=== PATIENT | male | born 1950 | race Caucasian/White ===

== ENCOUNTER 2019-02-07 06:45 | Day surgery (SDC) | payer MEDICARE, OTHER ==
[~2019-02-07 06:45] MED LIST: Dexamethasone IV* 4 MG/ML 1 ML (4 MG) IV SLOW PU ONE; Famotidine IV* 10 MG/ML 2 ML (20 mg) IV ONE; Lactated Ringers 1000 ML Bag* 1,000 ML IV SCH
[2019-02-07] MEDS ORDERED: Clindamycin 900 MG IVPREMIX(* 0 MG/0 ML SDV IV ONE (06:51)
[2019-02-07] MEDS ORDERED: Dexamethasone IV* 4 MG/ML 1 ML (4 MG) ONE ×2 (06:51→07:11)
[2019-02-07] MEDS ORDERED: Famotidine IV* 10 MG/ML 2 ML (20 mg) ONE ×2 (06:52→07:11)
[2019-02-07] MEDS ORDERED: Buffered Lidocaine 1% SYRIN* 1 ML/SYRINGE INTRADERM ONE ×2 (06:52→07:11)
[2019-02-07] MEDS ORDERED: Clindamycin 900 MG IVPREMIX(* 900 MG/50 ML SDV IV ONE (07:11)
[2019-02-07] MEDS: Buffered Lidocaine 1% SYRIN* 1 ML/SYRINGE INTRADERM ONE ×2 (07:37→07:41)
[2019-02-07] MEDS ORDERED: fentaNYL* 50 MCG/ML 2 ML VIAL (100 MCG VIAL) ONE (08:23)
[2019-02-07] MEDS ORDERED: Midazolam* 1 MG/ML 2 ML VIAL (2 MG) ONE (08:23)
[2019-02-07] MEDS ORDERED: Bupivacaine 0.25% SDV PF* 10 ML VIAL INJ ONE (08:53)
[2019-02-07] MEDS ORDERED: Propofol* 10 MG/ML 20 ML BTL ONE (08:59)
[2019-02-07] MEDS ORDERED: Lidocaine 2% PF * 5 ML VIAL ONE (08:59)
[2019-02-07] MEDS ORDERED: oxyCODONE TAB* 5 MG TAB PO PRN (09:04)
[2019-02-07] MEDS ORDERED: Naloxone* 0.4 MG/ML 1 ML VIAL IV PRN (09:04)
[2019-02-07] MEDS ORDERED: fentaNYL* 50 MCG/ML 2 ML VIAL (100 MCG VIAL) IV PRN (09:04)
[2019-02-07] MEDS ORDERED: DiMENhydriNATE IV* 50 MG/ML VIAL IV PUSH PRN (09:04)
[2019-02-07] MEDS ORDERED: Ketorolac INJ* 30 MG/ML 1 ML VIAL IV PRN (09:04)
[2019-02-07] MEDS ORDERED: Acetaminophen TAB* 325 MG PO PRN (09:04)
[2019-02-07] MEDS ORDERED: HYDROcodone/ACETAMIN 5-325 MG* 1 TAB PO PRN (09:04)
[2019-02-07] MEDS ORDERED: Ondansetron INJ* 2 MG/ML VIAL ONE (10:02)
[2019-02-07] MEDS ORDERED: Ketorolac INJ* 30 MG/ML 1 ML VIAL ONE (10:56)
[2019-02-07] MEDS ORDERED: HYDROcodone/ACETAMIN 5-325 MG* 1 TAB ONE (10:56)
[2019-02-07 12:32] VITALS: BP 131/72
--- NOTE | 2019-02-07 17:30 | OP ---
DATE OF OPERATION: 02/07/19 - [facility] DATE OF : 46 SURGEON: Dawson Sue MD JINRIKISHA DRIVER: GEOVANY Joyner ANESTHESIOLOGIST: Dr. Viera. ANESTHESIA: General. PRE-OP DIAGNOSES: 1. Right carpal tunnel syndrome. 2. Right middle, ring, and small trigger fingers. POST-OP DIAGNOSES: 1. Right carpal tunnel syndrome. 2. Right middle, ring, and small trigger fingers. OPERATIVE PROCEDURE: 1. Right endoscopic carpal tunnel release. 2. Right middle trigger finger release. 3. Right ring trigger finger release. 4. Right small trigger finger release. INDICATIONS: Mateo has the aforementioned symptoms. The numbness is mostly between the ring and the middle fingers. Additionally, the trigger fingers are chronic. He has been to physical therapy. He has had difficulty fully closing the hand for quite some time. He understands he is going to need to do therapy postoperatively. Risks and benefits have been discussed. ESTIMATED BLOOD LOSS: 2 mL. COMPLICATIONS: None. FINDINGS: See above and below. DESCRIPTION OF PROCEDURE: Mateo was seen in the preoperative holding area. The correct side, site, and procedure were identified. We came back to the operating room. The arm was prepped and draped in the usual fashion. A time- out was performed. The arm was exsanguinated with the Esmarch and the tourniquet was inflated to 250 mmHg. I began by making a 1-cm transverse incision just ulnar to the palmaris longus tendon. Dissection was carried down bluntly with the tenotomy scissors and then I made a split in the distal antebrachial fascia. I retracted this out of way with a narrow two-prong skin hook. I then used a synovial stripper followed by the dilators and then the MicroAire endoscopic carpal tunnel system was introduced. I had excellent visualization, I went ahead and elevated the knife blade and pulled back to cut the transverse carpal ligament. Once I completed the distal cut, I went ahead and released the remainder of the cut proximally. I placed a Brandon retractor and confirmed the full release distally. I then released the remainder of the distal antebrachial fascia and transverse carpal ligament proximally with the tenotomy scissors. I then irrigated out the wound and skin was closed with a 4-0 nylon suture. I then made 1-cm longitudinal incisions over the A1 javier of the middle, ring, and then small fingers. Dissection was carried down and bluntly I raised full- thickness flaps off each tendon sheath. I first began at the middle finger. I placed a couple of Ragnell retractors and then released the A1 javier with a 15 blade along the radial third longitudinally. The release was completed distally and proximally with the tenotomy scissors. There was quite a bit of proximal tenosynovitis; this was all excised. I then came to the ring finger and placed the Ragnell retractors and then released the A1 javier in similar fashion. I then came to the small finger and placed the Ragnell retractors and released the A1 javier in similar fashion. There was not as much tenosynovitis around the ring and small fingers. After I released all 3 trigger fingers, I checked for any triggering; there was none. I irrigated out all the wounds. Skin was closed with 4-0 nylon suture. Soft dressings were applied. He was taken to the recovery room in stable condition. [id number]/[facility] #: [id number]
== END 2019-02-07 11:35 | disposition home or self-care (01) ==
LOC: OR 06:45
PROVIDERS: ATTEND Orthopaedic Surgery Hand Surgery
DX: G56.01 Carpal tunnel syndrome, right upper limb (principal); G56.21 Lesion of ulnar nerve, right upper limb; M65.351 Trigger finger, right little finger; M65.331 Trigger finger, right middle finger; M65.341 Trigger finger, right ring finger; M79.7 Fibromyalgia; Z88.0 Allergy status to penicillin
CPT/HCPCS: J1100; J1885; J2250; J2405; J2704; J3010; J3490

== ENCOUNTER 2019-08-04 14:49 | Emergency (ER) | payer MEDICARE, OTHER ==
[2019-08-04] MEDS ORDERED: Bupivacaine 0.25% SDV* 30 ML INJ ONE (16:01)
[2019-08-04] MEDS ORDERED: Bupivacaine 0.25% SDV PF* 10 ML VIAL INJ ONE (16:01)
--- NOTE | 2019-08-04 16:57 | ED ---
Laceration/Wound HPI - HPI Summary HPI Summary: Pt presents to the ED with a right hand injury. Patient states he fell, stretching out his R hand and injuring it on something sharp on the ground. Tetanus is not UTD. Denies any numbness or tingling into the hand. Denies any pain to the upper extremity otherwise. States he is able to move all fingers and thumb well, however the thumb is with pain. Bleeding is controlled on arrival. - History of Current Complaint Stated Complaint: INJURY TO RIGHT HAND PER PT Time Seen by Provider: 08/04/19 15:02 Hx Obtained From: Patient Mechanism of Injury: Sharp/Blunt Trauma Onset/Duration: Sudden Onset, Lasting Hours Alleviating: Compression Timing: Constant Onset Severity: Severe Current Severity: Severe Pain Intensity: 6 Pain Scale Used: 0-10 Numeric Associated Signs & Symptoms: Negative Related Hx: Dominant Hand (Right) - Allergy/Home Medications Allergies/Adverse Reactions: Allergies Allergy/AdvReac Type Severity Reaction Status Date / Time Penicillins Allergy Rash Verified 08/04/19 15:01 PMH/Surg Hx/FS Hx/Imm Hx Previously Healthy: Yes Endocrine/Hematology History: Denies: Hx Diabetes, Hx Thyroid Disease Cardiovascular History: Denies: Hx Pacemaker/ICD, Other Cardiovascular Problems/Disorders Respiratory History: Denies: Other Respiratory Problems/Disorders GI History: Denies: Other GI Disorders History: Denies: Other Problems/Disorders Musculoskeletal History: Reports: Hx Arthritis - LEFT FOOT, RIGHT KNEE, LEFT KNEE, Other Musculoskeletal History - shoulder and knee right side surgery after a trauma Sensory History: Denies: Hx Contacts or Glasses, Hx Hearing Aid Opthamlomology History: Denies: Hx Contacts or Glasses Neurological History: Denies: Other Neuro Impairments/Disorders - Surgical History Surgery Procedure, Year, and Place: 2013-RIGHT KNEE SURGERY-[facility]. 2016- RIGHT ROTATOR CUFF REPAIR. VASECTOMY-45 YEARS AGO Hx Anesthesia Reactions: No - Immunization History Hx Pertussis Vaccination: No Immunizations Up to Date: Yes Infectious Disease History: No Infectious Disease History: Denies: Traveled Outside the [place] in Last 30 Days - Social History Occupation: Unemployed Lives: With Family Alcohol Use: Rare Hx Substance Use: No Substance Use Type: Reports: None Hx Tobacco Use: No Smoking Status (MU): Never Smoked Tobacco Have You Smoked in the Last Year: No Review of Systems Negative: Fever, Chills, Fatigue, Skin Diaphoresis Negative: Palpitations, Chest Pain Genitourinary: Negative Positive: no symptoms reported, see HPI Negative: Arthralgia, Myalgia Positive: Other - large laceration to the webspace of the R hand Neurological: Negative All Other Systems Reviewed And Are Negative: Yes Physical Exam Triage Information Reviewed: Yes Vital Signs On Initial Exam: Initial Vitals Temp Pulse Resp BP Pulse Ox 98 F 77 16 184/100 96 08/04/19 14:56 08/04/19 14:56 08/04/19 14:56 08/04/19 14:56 08/04/19 14:56 Vital Signs Reviewed: Yes Appearance: Positive: Well-Appearing, Well-Nourished Skin: Positive: Skin Color Reflects Adequate Perfusion, Other - skin tears around R hand - large maceration with exposed thenar muscles Eyes: Positive: EOMI, TERRI, Conjunctiva Clear Neck: Positive: Supple, No Lymphadenopathy Respiratory/Lung Sounds: Positive: Clear to Auscultation, Breath Sounds Present Cardiovascular: Positive: Normal, Pulses are Symmetrical in both Upper and Lower Extremities Musculoskeletal: Positive: Strength/ROM Intact Neurological: Positive: Speech Normal Psychiatric: Positive: Affect/Mood Appropriate AVPU Assessment: Alert Procedures - Sedation Patient Received Moderate/Deep Sedation with Procedure: No - Laceration/Wound Repair R hand Location: upper extremity Description: Irregular Anesthesia: 1.0%, Lido, Marcaine Length, Depth and Shape: 5cm diameter, deep Betadine Prep?: No Irrigated w/ Saline (ccs): 120 - copious jet irrigation and soak with FB removal Laceration/Wound Explored: contaminated, foreign body removed Closure: Single Layer - 12 sutures placed Debridement: moderate Suture Type: Prolene Number of Sutures: 12 Layer Closure?: No Sterile Dressing Applied?: Yes Diagnostics - Vital Signs Vital Signs Temp Pulse Resp BP Pulse Ox 08/04/19 14:56 98 F 77 16 184/100 96 - Laboratory Lab Statement: Any lab studies that have been ordered have been reviewed, and results considered in the medical decision making process. 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 There is a deep laceration to the thenar/web spacing of the R hand. Thumb opposition intact, although pt unwilling to fully oppose thumb to all fingers d/t pain. Thenar muscles exposed. Skin flap over area macerated and pulled back, exlosing underlying tissue and muscle. Nn obvious tendon laceration, although difficult to assess. Pulses +2 intact. No decreased sensation throughout the fingers, thumb, base of thumb or wrist. No temperature changes. Flexion and extension of all fingers intact, thumb flexion at IP joint limited, again difficult to assess d/t patient pain. Marcaine and lidocaine placed around wound. Discussed with Dr. Sapp (photos sent by backline). Encouraged bedside washout jet irrigation with appropriation of the skin with loose closure and medicated bandage. Will f/u with ortho. Soak followed by copious jet irrigation x 10 minutes bedside with several small debris removed from wound. 12 loose closure using 4-0 prolene placed. Bleeding controlled. NV intact. Xeroform occlusive medicated gauze placed. Wrapped with gauze and valdez bandage applied. Given keflex and tetanus updated in ED. Given follow up with Dr. Sue (pt preference) and Tramadol RX. Keflex RX. He will change bandage every 24-48 hours (supplied given) and allow warm soapy water to the area without scrubbing. All return precautions were discussed in depth and he offers no concerns at this. He will call ortho [facility] for f/u appt. - Differential Dx Differental Diagnoses: Foreign Body, Laceration, Tendon Laceration - Clinical Impression Provider Diagnoses: Hand laceration - Physician Notifications Discussed Care Of Patient With: Leonardo Sapp Instructed by Provider To: Have Pt Call For Appt. - pt will call [facility] AM Discharge ED - Sign-Out/Discharge Documenting (check all that apply): Patient Departure - Discharge Plan Condition: Stable Disposition: HOME Prescriptions: Cephalexin CAP* [Keflex CAP*] 500 mg PO BID #14 cap MDD 2 Cephalexin CAP* [Keflex CAP*] 500 mg PO BID #14 cap MDD 2 traMADol TAB* [Ultram*] 50 mg PO Q8H PRN #12 tab MDD 3 PRN Reason: Pain Patient Education Materials: Care For Your Stitches (ED), Laceration (ED) Referrals: Daljit Villasenor MD [Primary Care Provider] - Dawson Sue MD [Medical Doctor] - 3 Days (Large hand laceration) Additional Instructions: Please follow up with Dr. Sue Keep the bandage applied x 24 hours You may gently remove the bandage, wash the area gently with soap and water and rebandage Call tomorrow morning to make an appt Keflex 500mg twice daily x 7 days - Billing Disposition and Condition Condition: STABLE Disposition: Home
[2019-08-04] MEDS ORDERED: Lidocaine 1% INJ* 10 MG/ML 30 ML SDV ONE (17:09)
[2019-08-04] MEDS ORDERED: Cephalexin CAP* 500 MG PO ONE (17:45)
[2019-08-04] MEDS ORDERED: Tetan/Diph/Pertus SYR(Tdap)* 0.5 ML SYR(BOOSTRIX) use SYR contains LATEX IM ONE (18:06)
[2019-08-04 18:35] VITALS: BP 148/91
== END 2019-08-04 18:32 | disposition home or self-care (01) ==
LOC: ED 14:49
DX: S61.411A Laceration without foreign body of right hand, initial encounter (principal); Z23 Encounter for immunization; W19.XXXA Unspecified fall, initial encounter; Y92.9 Unspecified place or not applicable; Z88.0 Allergy status to penicillin; Z98.52 Vasectomy status
CPT/HCPCS: 12002; 90471; 90715; 99282; A9270-GY; J3490

== ENCOUNTER 2020-11-27 03:50 | Inpatient (IN) ==
[2020-11-27] MEDS ORDERED: NS 0.9% 1000 ml BAG 1,000 ML IV ONE ×2 (03:56→04:34)
[2020-11-27] MEDS ORDERED: Ondansetron 4 mg VIAL 2 MG/ML 2 ml VIAL IV ONE ×3 (04:34→15:02)
[2020-11-27 04:39] LABS: ABS Basophils 0.1 10^3/ul (0-0.2); ABS Eosinophils 0.2 10^3/ul (0-0.6); ABS Lymphocytes 1.4 10^3/ul (1.0-4.8); ABS Monocytes 0.6 10^3/ul (0-0.8); ABS Neutrophils 8.4 10^3/ul (1.5-7.7); Eosinophil % 2.3 %; Hematocrit 44 % (42-52); Hemoglobin 14.8 g/dL (14.0-18.0); Lymphocyte % 13.3 %; Mean Corpuscular HGB Conc 34 g/dL (31-36); Mean Corpuscular Hemoglobin 30 pg (27-31); Mean Corpuscular Volume 89 fL (80-94); Mean Platelet Volume 9.6 fL (7.4-10.4); Platelet Count 186 10^3/uL (150-450); Red Blood Count 4.88 10^6 /uL (4.18-5.48); Red Cell Distribution Width 14 % (10-15); White Blood Count 10.8 10^3/uL (3.5-10.8)
[2020-11-27] MEDS ORDERED: hydrALAZINE 20 mg/ml 1 ML Vial IV IV SLOW PU ONE (04:48)
[2020-11-27 04:51] LABS: Activated Partial Thrombo Time 27.9 seconds (26.0-38.0); Albumin 4.1 g/dL (3.2-5.2); Albumin/Globulin Ratio 1.6 (1-3); BUN/Creatinine Ratio 20.2 (8-20); Calcium 8.9 mg/dL (8.6-10.3); EGFR Non-African American 90.1 (>60); Globulin 2.5 g/dL (2-4); HDL Cholesterol 52.1 mg/dL; INR 0.93 (0.82-1.09); Potassium 3.3 mmol/L (3.5-5.0); Total Bilirubin 0.4 mg/dL (0.2-1.0); Total Protein 6.6 g/dL (6.4-8.9)
[2020-11-27] MEDS ORDERED: Iohexol 350 (CONTRAST) 500 ML MDV IV ONE (05:13)
[2020-11-27 05:38] LABS: Urine Appearance Clear; Urine Bilirubin Negative (Negative); Urine Blood Negative (Negative); Urine Color Straw; Urine Glucose 1+(50 mg/dL) (Negative); Urine Ketones Negative (Negative); Urine Nitrite Negative (Negative); Urine Protein Negative (Negative); Urine Specific Gravity 1.014 (1.010-1.030); Urine Urobilinogen Negative (Negative)
[2020-11-27] MEDS ORDERED: NS 0.9% 1000 ml BAG 1,000 ML IV SCH (10:00)
[2020-11-27] MEDS ORDERED: niCARdipine 0.1MG/ML IVPREMIX 20 MG/200 ML BAG IV SCH (10:00)
[2020-11-27 10:29] LABS: Phosphorus 2.5 mg/dL (2.5-5.0)
[2020-11-27] MEDS: KCL 10 MEQ/50 ML IVPREMIX 10 MEQ/50 ML BAG IV SCH ×2 (11:19→12:38)
[2020-11-27] MEDS ORDERED: hydrALAZINE 20 mg/ml 1 ML Vial IV IV SLOW PU PRN (13:53)
[2020-11-27] MEDS ORDERED: Ondansetron 4 mg VIAL 2 MG/ML 2 ml VIAL ONE (15:03)
[2020-11-27 15:12] VITALS: BP 136/62
== END 2020-11-27 13:30 | disposition short-term general hospital (02) | DRG 65 ==
LOC: ED 03:50 → ICU 06:44
PROVIDERS: ADMIT Internal Medicine; ATTEND Internal Medicine

== ENCOUNTER 2024-10-05 21:43 | Observation (INO) ==
[2024-10-05 22:43] LABS: ABS Basophils 0.1 10^3/uL (0.0-0.1); ABS Eosinophils 0.1 10^3/uL (0.0-0.5); ABS Lymphocytes 1.2 10^3/uL (1.0-4.8); ABS Monocytes 0.8 10^3/uL (0.0-1.1); ABS Neutrophils 10.8 10^3/uL (1.5-7.6); ABS Nucleated RBC 0.01 10^3/ul; Eosinophil % 0.6 %; Hematocrit 45.7 % (38-53); Hemoglobin 15.7 g/dL (13.2-16.3); Mean Corpuscular Hemoglobin 31.2 pg (27-33); Mean Corpuscular Hgb Conc 34.4 g/dL (31-36); Mean Corpuscular Volume 90.8 fL (80-97); Mean Platelet Volume 9.2 fL (7.5-11.2); Nucleated Red Blood Cells % 0.1 %/100WBC (0.0-0.8); Platelet Count 200 10^3/uL (150-450); Red Blood Count 5.03 10^6/uL (4.06-5.63); Red Cell Distribution Width 14.2 % (12-17)
[2024-10-05 23:03] LABS: High Sens Troponin Baseline 4 pg/mL (<20)
[2024-10-05] MEDS: Lactated Ringers 1000 ml BAG 1,000 ML IV ONE (23:09)
[2024-10-05 23:14] LABS: ALT 67 U/L (7-52); Albumin 3.7 g/dL (3.5-5.7); Albumin/Globulin Ratio 1.7 (1-3); Alkaline Phosphatase 69 U/L (35-149); Anion Gap 10 mmol/L (2-16); Blood Urea Nitrogen 14 mg/dL (6-24); CO2 Carbon Dioxide 27 mmol/L (22-32); Calcium 8.7 mg/dL (8.6-10.3); Chloride 104 mmol/L (101-111); Creatinine, Serum 1.14 mg/dL (0.67-1.17); Globulin 2.2 g/dL (2-4); Glucose 173 mg/dL (70-100); Sodium 141 mmol/L (135-145); Total Bilirubin 0.5 mg/dL (0.2-1.0); Total Protein 5.9 g/dL (6.4-8.9); eGFR CKD-EPI 67.1 (>60)
[2024-10-05 23:29] LABS: TSH Ultra Thyroid Stim Horm 7.44 mcIU/mL (0.34-5.60)
[2024-10-06 00:13] LABS: Potassium Redraw 3.4 mmol/L (3.5-5.0)
[2024-10-06 02:10] LABS: Hematocrit 42.7 % (38-53); Hemoglobin 14.6 g/dL (13.2-16.3)
[2024-10-06 02:21] LABS: C Reactive Protein 2.06 mg/L (<8.01)
[2024-10-06] MEDS: Iohexol 300 (CONTRAST) 10 ML SDV IV ONE (03:14)
[2024-10-06 05:42] LABS: Urine Color Yellow
[2024-10-06 05:50] LABS: Urine Specific Gravity >1.050 (1.002-1.030)
[2024-10-06 05:51] LABS: Urine Bilirubin Negative (Negative); Urine Blood Negative (Negative); Urine Glucose Negative (Negative); Urine Ketones Negative (Negative); Urine Nitrite Negative (Negative); Urine Protein 1+ (>=30 mg/dL) (Negative); Urine Urobilinogen Negative (Negative)
[2024-10-06 05:52] LABS: Urine Appearance Cloudy
[2024-10-06] MEDS ORDERED: Al Hydrox/Mg Hydrox/Simet LIQ 30 ML UDC PO PRN (09:19)
[2024-10-06] MEDS: NS 0.9% 1000 ml BAG 1,000 ML IV SCH (11:29)
[2024-10-06] MEDS: KCL 20 MEQ/100 ML IVPREMIX 20 MEQ/100 ML BAG IV SCH (11:43)
[2024-10-07 06:26] LABS: ABS Eosinophils 0.2 10^3/uL (0.0-0.5); ABS Lymphocytes 1.3 10^3/uL (1.0-4.8); ABS Monocytes 0.8 10^3/uL (0.0-1.1); ABS Neutrophils 5.9 10^3/uL (1.5-7.6); ABS Nucleated RBC 0.01 10^3/ul; Eosinophil % 2.4 %; Hemoglobin 14.8 g/dL (13.2-16.3); Lymphocyte % 15.5 %; Mean Corpuscular Hemoglobin 30.8 pg (27-33); Mean Corpuscular Hgb Conc 34.5 g/dL (31-36); Mean Corpuscular Volume 89.3 fL (80-97); Mean Platelet Volume 9.4 fL (7.5-11.2); Nucleated Red Blood Cells % 0.1 %/100WBC (0.0-0.8); Platelet Count 180 10^3/uL (150-450); Red Blood Count 4.82 10^6/uL (4.06-5.63); Red Cell Distribution Width 13.8 % (12-17); White Blood Count 8.3 10^3/uL (3.6-10.2)
[2024-10-07 07:14] LABS: C Reactive Protein 26.37 mg/L (<8.01); Calcium 8.1 mg/dL (8.6-10.3); Creatinine, Serum 0.74 mg/dL (0.67-1.17); Magnesium 1.8 mg/dL (1.9-2.7); Potassium 3.4 mmol/L (3.5-5.0); eGFR CKD-EPI 94.5 (>60)
[2024-10-07] MEDS: Azithromycin 250 MG in NS 0.9% 250 ml 250 ML IVPB SCH (07:46)
[2024-10-07] MEDS ORDERED: Azithromycin 250 MG in NS 0.9% 250 ml 250 ML IVPB SCH (08:00)
[2024-10-07] MEDS: Sulfur Hexaflouride MICROSPHR 25 MG VIAL IV PRN (13:47)
[2024-10-07] MEDS: Azithromycin 250 MG in NS 0.9% 250 ml 250 ML IVPB ONE (17:10)
[2024-10-07] MEDS: Enoxaparin 40 MG/0.4 ML SYR SUBCUT SCH (17:18)
[2024-10-07] MEDS: NS 0.9% IVPB SCH (20:26)
[2024-10-07] MEDS: AZITHROMYCIN IVPB SCH (20:26)
[2024-10-07] MEDS: Bacitracin OINTMENT TUBE TOPICAL SCH (23:53)
[2024-10-08 07:34] LABS: ABS Eosinophils 0.1 10^3/uL (0.0-0.5); ABS Lymphocytes 0.8 10^3/uL (1.0-4.8); ABS Monocytes 1.1 10^3/uL (0.0-1.1); ABS Neutrophils 9.5 10^3/uL (1.5-7.6); ABS Nucleated RBC 0.03 10^3/ul; Eosinophil % 0.5 %; Hemoglobin 15.3 g/dL (13.2-16.3); Lymphocyte % 7.2 %; Mean Corpuscular Hemoglobin 30.8 pg (27-33); Mean Corpuscular Hgb Conc 33.9 g/dL (31-36); Mean Corpuscular Volume 90.7 fL (80-97); Mean Platelet Volume 9.7 fL (7.5-11.2); Nucleated Red Blood Cells % 0.2 %/100WBC (0.0-0.8); Platelet Count 184 10^3/uL (150-450); Red Blood Count 4.96 10^6/uL (4.06-5.63); Red Cell Distribution Width 14.2 % (12-17); White Blood Count 11.5 10^3/uL (3.6-10.2)
[2024-10-08 07:38] LABS: Calcium 8.5 mg/dL (8.6-10.3); Creatinine, Serum 2.23 mg/dL (0.67-1.17); Magnesium 1.8 mg/dL (1.9-2.7); Potassium 3.7 mmol/L (3.5-5.0)
[2024-10-08] MEDS: NS 0.9% IVPB SCH (08:14)
[2024-10-08] MEDS: AZITHROMYCIN IVPB SCH (08:14)
[2024-10-09] MEDS: Magnesium Sulfate 2 gm BAG 2 GM/50 ML BAG IVPB ONE (16:58)
[2024-10-10 06:04] LABS: Calcium 8.6 mg/dL (8.6-10.3); Creatinine, Serum 1.22 mg/dL (0.67-1.17); Magnesium 2.2 mg/dL (1.9-2.7); Potassium 3.4 mmol/L (3.5-5.0); eGFR CKD-EPI 61.8 (>60)
[2024-10-10] MEDS: KCL 20 MEQ/100 ML IVPREMIX 20 MEQ/100 ML BAG IV ONE (09:29)
[2024-10-11 09:54] VITALS: BP 122/65
== END 2024-10-11 13:20 ==
LOC: EDHOLD 21:43 → ED 21:43 → SUATTDRO 10-06 09:13 → MEDTELE 10-06 13:16
PROVIDERS: ADMIT Internal Medicine; ATTEND Student in an Organized Health Care Education/Training Program

== ENCOUNTER 2024-11-14 11:28 | Observation (INO) ==
[2024-11-14 12:06] LABS: ABS Basophils 0.1 10^3/uL (0.0-0.1); ABS Eosinophils 0.2 10^3/uL (0.0-0.5); ABS Lymphocytes 0.9 10^3/uL (1.0-4.8); ABS Monocytes 0.9 10^3/uL (0.0-1.1); ABS Neutrophils 11.1 10^3/uL (1.5-7.6); ABS Nucleated RBC 0.01 10^3/ul; Eosinophil % 1.6 %; Hematocrit 44.3 % (38-53); Hemoglobin 15.1 g/dL (13.2-16.3); Lymphocyte % 6.8 %; Mean Corpuscular Hemoglobin 30.4 pg (27-33); Mean Corpuscular Hgb Conc 34.1 g/dL (31-36); Mean Corpuscular Volume 89.3 fL (80-97); Mean Platelet Volume 9.2 fL (7.5-11.2); Nucleated Red Blood Cells % 0.1 %/100WBC (0.0-0.8); Platelet Count 253 10^3/uL (150-450); Red Blood Count 4.96 10^6/uL (4.06-5.63); Red Cell Distribution Width 13.8 % (12-17); White Blood Count 13.2 10^3/uL (3.6-10.2)
[2024-11-14 12:34] LABS: Activated Partial Thrombo Time 29.9 seconds (26.0-38.0); INR 1.17 (0.85-1.14)
[2024-11-14 12:37] LABS: Albumin 3.6 g/dL (3.5-5.7); Albumin/Globulin Ratio 1.2 (1-3); C Reactive Protein 164.79 mg/L (<8.01); Calcium 9.3 mg/dL (8.6-10.3); Creatinine, Serum 1.1 mg/dL (0.67-1.17); Potassium 4.5 mmol/L (3.5-5.0); Total Protein 6.6 g/dL (6.4-8.9)
[2024-11-14 13:20] LABS: Urine Appearance Extra Turbid; Urine Bilirubin Negative (Negative); Urine Blood 3+ (Negative); Urine Glucose Negative (Negative); Urine Ketones 2+ (Negative); Urine Nitrite Negative (Negative); Urine Protein 3+ (>=300 mg/dL) (Negative); Urine Specific Gravity 1.025 (1.002-1.030); Urine Urobilinogen 2+ (Negative)
[2024-11-14 13:36] LABS: High Sensitivity Troponin 1 Hr 5 pg/mL (<20)
[2024-11-14] MEDS: NS 0.9% IV ONE (13:44)
[2024-11-14] MEDS: cefTRIAXone 2 gm/50 mL D5W 2 GM/50 ML BAG IV ONE (13:44)
[2024-11-14 13:52] LABS: Urine Bacteria Absent /HPF (Absent); Urine Red Blood Cell 3+(>10/hpf) /HPF (0-Trace); Urine Squamous Epithelial Cell Present /HPF (Absent); Urine White Blood Cell 3+(>20/hpf) /HPF (0-Trace)
[2024-11-14 15:42] LABS: Urine Color Yellow
[2024-11-14 16:36] LABS: Magnesium 2.3 mg/dL (1.9-2.7)
[2024-11-15 05:51] LABS: ABS Basophils 0.1 10^3/uL (0.0-0.1); ABS Eosinophils 0.3 10^3/uL (0.0-0.5); ABS Lymphocytes 1.1 10^3/uL (1.0-4.8); ABS Neutrophils 8.1 10^3/uL (1.5-7.6); Eosinophil % 3.2 %; Hematocrit 39.3 % (38-53); Hemoglobin 13.3 g/dL (13.2-16.3); Lymphocyte % 9.9 %; Mean Corpuscular Hemoglobin 29.9 pg (27-33); Mean Corpuscular Hgb Conc 33.9 g/dL (31-36); Mean Corpuscular Volume 88.4 fL (80-97); Mean Platelet Volume 9.5 fL (7.5-11.2); Platelet Count 224 10^3/uL (150-450); Red Blood Count 4.45 10^6/uL (4.06-5.63); White Blood Count 10.6 10^3/uL (3.6-10.2)
[2024-11-15 06:11] LABS: Calcium 8.1 mg/dL (8.6-10.3); Creatinine, Serum 0.71 mg/dL (0.67-1.17); Magnesium 2.1 mg/dL (1.9-2.7); Potassium 3.7 mmol/L (3.5-5.0); eGFR CKD-EPI 95.7 (>60)
[2024-11-15] MEDS: cefTRIAXone 1 gm/50 mL D5W 1 GM/50 ML BAG IV SCH (13:23)
[2024-11-15] MEDS: Enoxaparin 40 MG/0.4 ML SYR SUBCUT SCH (21:43)
[2024-11-16 13:27] VITALS: BP 126/78
== END 2024-11-16 15:13 | disposition home health service (06) ==
LOC: ED 11:28 → EDHOLD 11:28 → SUATTDRO 16:11 → MED 17:12
PROVIDERS: ADMIT Student in an Organized Health Care Education/Training Program; ATTEND Hospitalist

== ENCOUNTER 2024-11-22 17:45 | Observation (INO) ==
[2024-11-22 19:21] LABS: ABS Eosinophils 0.1 10^3/uL (0.0-0.5); ABS Lymphocytes 0.8 10^3/uL (1.0-4.8); ABS Monocytes 0.9 10^3/uL (0.0-1.1); ABS Neutrophils 15.4 10^3/uL (1.5-7.6); ABS Nucleated RBC 0.02 10^3/ul; Eosinophil % 0.8 %; Hematocrit 41.1 % (38-53); Lymphocyte % 4.7 %; Mean Corpuscular Hgb Conc 34.1 g/dL (31-36); Mean Corpuscular Volume 88.2 fL (80-97); Mean Platelet Volume 8.8 fL (7.5-11.2); Nucleated Red Blood Cells % 0.1 %/100WBC (0.0-0.8); Platelet Count 310 10^3/uL (150-450); Red Blood Count 4.66 10^6/uL (4.06-5.63); Red Cell Distribution Width 14.6 % (12-17); White Blood Count 17.3 10^3/uL (3.6-10.2)
[2024-11-22 19:56] LABS: ALT 24 U/L (7-52); Albumin 3.5 g/dL (3.5-5.7); Albumin/Globulin Ratio 1.3 (1-3); Alkaline Phosphatase 64 U/L (35-149); Anion Gap 10 mmol/L (2-16); Blood Urea Nitrogen 15 mg/dL (6-24); C Reactive Protein 13.92 mg/L (<8.01); CO2 Carbon Dioxide 25 mmol/L (22-32); Calcium 9.3 mg/dL (8.6-10.3); Chloride 103 mmol/L (101-111); Creatinine, Serum 0.83 mg/dL (0.67-1.17); Globulin 2.6 g/dL (2-4); Glucose 139 mg/dL (70-100); Lipase 53 U/L (11.0-82.0); Sodium 138 mmol/L (135-145); Total Bilirubin 0.5 mg/dL (0.2-1.0); Total Protein 6.1 g/dL (6.4-8.9); eGFR CKD-EPI 91.3 (>60)
[2024-11-22 21:08] LABS: Potassium Redraw 4.2 mmol/L (3.5-5.0)
[2024-11-22] MEDS: Lidocaine 2% JELLY 6 ML Topical TOPICAL ONE (21:12)
[2024-11-22 21:33] LABS: Urine Appearance Turbid; Urine Bilirubin Negative (Negative); Urine Blood 3+ (Negative); Urine Color Yellow; Urine Glucose Negative (Negative); Urine Ketones Trace (Negative); Urine Nitrite Negative (Negative); Urine Protein 1+ (>=30 mg/dL) (Negative); Urine Urobilinogen Negative (Negative); Urine pH 5.5 (5.0-8.0)
[2024-11-22 21:46] LABS: Urine Bacteria Absent /HPF (Absent); Urine Red Blood Cell 3+(>10/hpf) /HPF (0-Trace); Urine White Blood Cell 3+(>20/hpf) /HPF (0-Trace)
[2024-11-22] MEDS ORDERED: cefTRIAXone 2 GM ADDV.VIAL 2 GM in NS 0.9% 100 ml BAG 100 ML IV ONE (22:07)
[2024-11-22] MEDS: cefTRIAXone 2 gm/50 mL D5W 2 GM/50 ML BAG IV ONE (23:14)
[2024-11-23] MEDS: Lactated Ringers 1000 ml BAG 1,000 ML IV ONE (01:09)
[2024-11-23 01:43] LABS: Magnesium 2.1 mg/dL (1.9-2.7); Phosphorus 3.3 mg/dL (2.5-5.0)
[2024-11-23 04:23] LABS: Hematocrit 40.2 % (38-53); Hemoglobin 13.7 g/dL (13.2-16.3); Mean Corpuscular Hemoglobin 30.1 pg (27-33); Mean Corpuscular Volume 88.6 fL (80-97); Mean Platelet Volume 8.8 fL (7.5-11.2); Platelet Count 303 10^3/uL (150-450); Red Blood Count 4.54 10^6/uL (4.06-5.63); Red Cell Distribution Width 14.5 % (12-17); White Blood Count 12.8 10^3/uL (3.6-10.2)
[2024-11-23 04:53] LABS: Creatinine, Serum 0.81 mg/dL (0.67-1.17); Potassium 4.1 mmol/L (3.5-5.0); eGFR CKD-EPI 91.9 (>60)
[2024-11-23 05:15] LABS: ABS Basophils 0.1 10^3/uL (0.0-0.1); ABS Eosinophils 0.2 10^3/uL (0.0-0.5); ABS Lymphocytes 1.3 10^3/uL (1.0-4.8); ABS Neutrophils 10.3 10^3/uL (1.5-7.6); Anisocytosis 1+; Eosinophil % 1.5 %; Lymphocyte % 10.4 %
[2024-11-23] MEDS: Enoxaparin 40 MG/0.4 ML SYR SUBCUT SCH (06:09)
[2024-11-23] MEDS: Ampicillin IV 1 GM in NS 0.9% 50 ML 50 ML IVPB SCH (10:10)
[2024-11-23] MEDS: Vitamin THERAPEUTIC TAB PO SCH (10:10)
[2024-11-23] MEDS ORDERED: cefTRIAXone 1 gm/50 mL D5W 1 GM/50 ML BAG IV SCH (23:00)
[2024-11-24] MEDS: Nystatin TOP POWDER 15 GM BTL TOPICAL SCH (07:41)
[2024-11-25 10:04] VITALS: BP 145/79
== END 2024-11-25 15:40 | disposition home health service (06) ==
LOC: ED 17:45 → EDHOLD 17:45 → ED 23:58 → SUATTDRO 11-23 01:18 → MEDTELE 11-23 02:50 → MED 11-24 19:38
PROVIDERS: ADMIT Internal Medicine; ATTEND Internal Medicine